=== PATIENT | female | born 1965 | race Caucasian/White ===

== ENCOUNTER 2020-10-12 11:01 | Emergency (ER) | payer BC ==
[~2020-10-12 11:01] MED LIST: PROTONIX 20 MG20 MG PO
== END 2020-10-12 13:00 | disposition home or self-care (01) ==
LOC: ER1 11:01
DX: S92.514A Nondisplaced fracture of proximal phalanx of right lesser toe(s), initial encounter for closed fracture (principal); E03.9 Hypothyroidism, unspecified; W22.8XXA Striking against or struck by other objects, initial encounter
CPT/HCPCS: 73660; 99283